=== PATIENT | female | born 1960 | race Caucasian/White ===

== ENCOUNTER 2016-05-20 10:00 | Emergency (ER) | payer BC ==
[~2016-05-20] VITALS: Ht 165.1 cm; Wt 72.3 kg
[~2016-05-20 10:00] MED LIST: ENDOCET 5-3251 EACH PO; Flexeril PO; predniSONE PO
[2016-05-20 10:54] LABS: CHLORIDE 98 mEq/L (99-109); SODIUM 136 mEq/L (136-147)
[2016-05-20 10:55] LABS: GLUCOSE 102 mg/dL (70-99)
[2016-05-20 10:57] LABS: ANION GAP 10 MEQ/L (2-14)
[2016-05-20 10:59] LABS: GFR ESTIMATE (CALCULATED) 36 mL/min/
[2016-05-20 11:00] LABS: UREA NITROGEN (BUN) 22 mg/dL (9-23)
[2016-05-20 11:04] LABS: TROP-I INTERPRETATION NEGATIVE; TROPONIN-I < 0.01 ng/mL (0.0-0.30)
[2016-05-20 11:09] LABS: HEMATOCRIT 40.3 % (36.0-46.0); MCH 29.2 PG (29.0-34.0); MCHC 33.7 G/DL (30.0-36.0); MCV 86.7 FL (83-99); PLATELET COUNT 256 K/uL (156-360); RBC DIS.WIDTH-SD 38.2 % (39-53); RED BLOOD COUNT 4.65 M/uL (3.80-5.20); WHITE BLOOD COUNT 6.5 K/uL (4.1-10.2)
[2016-05-20] MEDS ORDERED: LISINOPRIL10 MG PO (11:24)
[2016-05-20] MEDS ORDERED: SIMVASTATIN20 MG PO (11:24)
[2016-05-20] MEDS ORDERED: MICROZIDE12.5 M1 PO (11:25)
[2016-05-20] MEDS ORDERED: PHENTERMINE H37.5 MG PO (11:25)
[2016-05-20 11:57] LABS: TOTAL BILIRUBIN 0.5 mg/dL (0.0-1.0)
[2016-05-20 11:58] LABS: ALKALINE PHOSPHATASE 64 IU/L (3-129)
[2016-05-20 12:00] LABS: D-DIMER ELISA 0.18 mg/L FEU (< 0.57); DIRECT BILIRUBIN 0.2 mg/dL (0.0-0.3)
[2016-05-20 12:01] LABS: LIPASE 66 U/L (1.0-51.0)
[2016-05-20 12:56] LABS: TROP-I INTERPRETATION NEGATIVE; TROPONIN-I < 0.01 ng/mL (0.0-0.30)
[2016-05-20 13:27] VITALS: BP 121/87
== END 2016-05-20 15:08 | disposition home or self-care (01) ==
LOC: EME 10:00
PROVIDERS: Nurse Practitioner Family
DX: R07.89 Other chest pain (principal); K21.9 Gastro-esophageal reflux disease without esophagitis; E78.5 Hyperlipidemia, unspecified; I10 Essential (primary) hypertension; Z87.891 Personal history of nicotine dependence
CPT/HCPCS: 71020; 80048; 80076; 83690; 84484; 85027; 85379; 93005; 99281; 99284